=== PATIENT | female | born 1930 | race Caucasian/White ===

== ENCOUNTER 2017-09-14 08:23 | Inpatient (IN) | payer OTHER ==
[~2017-09-14] VITALS: Ht 165.1 cm; Wt 84.4 kg
[2017-09-14] MEDS ORDERED: VASOFLEX HD CA1 EACH (09:01)
[2017-09-14] MEDS ORDERED: DULOXETINE HCL20 MG (09:01)
[2017-09-14] MEDS ORDERED: ATORVASTATIN CA20 MG (09:02)
[2017-09-14] MEDS ORDERED: LOSARTAN POTASS25 MG (09:02)
[2017-09-14] MEDS ORDERED: DICLOFENAC SODI25 MG (09:02)
[2017-09-14] MEDS ORDERED: ASPIR 8181 MG (09:03)
[2017-09-24] MEDS ORDERED: OXYC1TAB9 PO (15:15)
== END 2017-09-24 17:32 | DRG 331 ==
LOC: ER 08:23 → SEC-K 15:45 → SURG 15:45 → SURH 17:36 → SURG 18:00
PROVIDERS: Surgery
PROC: 30233N1 Transfusion of Nonautologous Red Blood Cells into Peripheral Vein, Percutaneous Approach (ICD-10-PCS; 2017-09-15)
PROC: 07TC4ZZ Resection of Pelvis Lymphatic, Percutaneous Endoscopic Approach (ICD-10-PCS; 2017-09-16)
PROC: 0DTF4ZZ Resection of Right Large Intestine, Percutaneous Endoscopic Approach (ICD-10-PCS; principal; 2017-09-16 10:00)
PROC: 0S9D3ZX Drainage of Left Knee Joint, Percutaneous Approach, Diagnostic (ICD-10-PCS; 2017-09-18)
PROC: 0SBD4ZZ Excision of Left Knee Joint, Percutaneous Endoscopic Approach (ICD-10-PCS; 2017-09-20)
PROC: 3E1U38X Irrigation of Joints using Irrigating Substance, Percutaneous Approach, Diagnostic (ICD-10-PCS; 2017-09-20)
PROC: 3E0U33Z Introduction of Anti-inflammatory into Joints, Percutaneous Approach (ICD-10-PCS; 2017-09-23)
PROC: 3E0U3BZ Introduction of Anesthetic Agent into Joints, Percutaneous Approach (ICD-10-PCS; 2017-09-23)
DX: C18.4 Malignant neoplasm of transverse colon (principal); D63.1 Anemia in chronic kidney disease; D63.0 Anemia in neoplastic disease; I12.9 Hypertensive chronic kidney disease with stage 1 through stage 4 chronic kidney disease, or unspecified chronic kidney disease; N18.3 Chronic kidney disease, stage 3 (moderate); E78.4 Other hyperlipidemia; D50.0 Iron deficiency anemia secondary to blood loss (chronic); M25.462 Effusion, left knee; M17.12 Unilateral primary osteoarthritis, left knee

== ENCOUNTER 2017-10-28 07:37 | Outpatient (CLI) | payer OTHER ==
[~2017-10-28 07:37] MED LIST: ASPIR 8181 MG; ATORVASTATIN CA20 MG; DICLOFENAC SODI25 MG; DULOXETINE HCL20 MG; LOSARTAN POTASS25 MG; OXYC1TAB9 PO; VASOFLEX HD CA1 EACH
== END 2017-10-28 07:40 | disposition home or self-care (01) ==
LOC: NUCLEAR 07:37
DX: C18.4 Malignant neoplasm of transverse colon (principal); D50.0 Iron deficiency anemia secondary to blood loss (chronic); I10 Essential (primary) hypertension; E03.8 Other specified hypothyroidism
CPT/HCPCS: 78816; A9552